=== PATIENT | female | born 2000 | race African-American/Black ===

== ENCOUNTER 2021-06-12 12:55 | Emergency (ER) | payer OTHER, SELFPAY ==
[2021-06-12 13:03] VITALS: BP 128/68; PULSE 102; RESP 18; TEMP 37.1; O2SAT 99
--- NOTE | 2021-06-12 15:28 | ED.URI ---
HPI - URI/Sore Throat General Chief Complaint: Upper Respiratory Infection Stated Complaint: headache, ST Time Seen by Provider: 06/12/21 13:28 Source: patient Mode of arrival: ambulatory Limitations: no limitations History of Present Illness HPI Narrative: This is a 21 year old male that presents to the ER for cold symptoms present since this morning. Reports congestion, headache and sore throat. She is not COVID vaccinated. Denies fever. Related Data Home Medications Medication Instructions Recorded Confirmed No Home Medications 06/12/21 06/12/21 Allergies Allergy/AdvReac Type Severity Reaction Status Date / Time No Known Allergies Allergy Verified 06/12/21 13:21 Review of Systems Review of Systems: CONSTITUTIONAL: Denies fever ENT: Reports congestion, sore throat RESPIRATORY: Reports cough. Denies dyspnea. All systems reviewed & are unremarkable except as noted in HPI and below PMFSH Past Medical History Medical History (Updated 06/12/21 @ 15:39 by Lauren Rodriguez PA-C) History of asthma Social History Social History (Updated 06/12/21 @ 15:32 by Lauren Rodriguez PA-C) Substance use: never Exam Narrative: GENERAL: Well-appearing, well-nourished, and in no acute distress. HEAD: Normocephalic, atraumatic. EYES: EOMI. ENT: Nares clear, no rhinorrhea or epistaxis. Mucous membranes moist. Oropharynx without tonsillar hypertrophy exudate or other lesions. Bilateral TMs pearly jalloh non-bulging NECK: Supple. No adenopathy or masses. CHEST: Clear to auscultation. No respiratory distress. No wheezes rales or rhonchi HEART: Regular rate and rhythm. No murmur heard. Normal peripheral pulses. EXTREMITIES: Normal range of motion. No edema. SKIN: Warm, dry, no rash. NEURO: No focal deficits. Alert and oriented x3. PSYCH: Normal mood and affect Course Vital Signs Vital signs: Vital Signs Temperature 98.7 F 06/12/21 13:03 Pulse Rate 102 H 06/12/21 13:03 Respiratory Rate 18 06/12/21 13:03 Blood Pressure 128/68 06/12/21 13:03 Pulse Oximetry 99 06/12/21 13:03 Temperature 98.7 F 06/12/21 13:03 Pulse Rate 102 H 06/12/21 13:03 Respiratory Rate 18 06/12/21 13:03 Blood Pressure 128/68 06/12/21 13:03 Pulse Oximetry 99 06/12/21 13:03 MDM - URI/Sore Throat MDM Narrative Medical decision making narrative: Patient presents to the emergency department for cold symptoms present since this morning. She is afebrile and nontoxic-appearing. Lungs are clear on exam. Influenza screen is negative. Strep screen is also negative. SARS-CoV-2 was sent. She is instructed on continued care of viral infection. She is to follow-up with her primary care doctor. She was given warnings to return to the ER Lab Data Attestation: I reviewed the patient's lab results. Labs: Lab Results 06/12/21 Range/Units 14:41 SARS-CoV-2 RNA (RT-PCR) Pending Influenza A Screen Negative Reference Range: Negative Influenza B Screen Negative Reference Range: Negative Strep Screen Presumptive Negative *(Reference Range: Negative)* Strep Screen Presumptive Negative *(Reference Range: Negative)* Critical Care Time Critical Care Time Critical Care Time: No Discharge Plan Discharge Clinical Impression: Person under investigation for COVID-19 Upper respiratory infection Qualifiers: URI type: unspecified viral URI Qualified Code(s): J06.9 - Acute upper respiratory infection, unspecified Patient Disposition: Home, Self-Care Condition: Stable Instructions: Viral Syndrome (ED), COVID-19 (Coronavirus Disease 2019) (ED) Additional Instructions: Return to the emergency department for worsening symptoms, or any other concerns Remain well-hydrated, get plenty of rest
[2021-06-12] MEDS: ACETAMINOPHEN 500 MG TABLET 1000 MG PO (15:38)
[2021-06-13 14:14] LABS: SARS-CoV-2 RNA PCR Positive
== END 2021-06-12 16:07 | disposition home or self-care (01) ==
PROVIDERS: Physician Assistant; Emergency Provider Emergency Medicine
DX: U07.1 COVID-19 (principal)
CPT/HCPCS: 87081; 87804; 87880; 99283; A9270; C9803; U0003; U0005